=== PATIENT | female | born 1960 | race Caucasian/White ===

== ENCOUNTER → 2018-03-12 13:57 | Outpatient (CLI) | payer BC, SELFPAY ==
--- NOTE | 2018-03-12 14:16 | XR_ITS ---
XR foot LT min 3V Ordering Physician: Referral Provider, Patient Age: 58 years: Female HISTORY: ITS.REASON: LEFT FOOT PAIN TECHNIQUE: 3 views left foot. Left foot pain COMPARISON :None FINDINGS Left foot appears intact with no fracture nor lesion evident. Joint spaces are well-maintained with no erosions. Tarsals with satisfactory relationships. Generous plantar arch Moderately thick plantar calcaneal spur measuring just over 10 mm length. There is also thin spurring at the Achilles tendon measuring 7.5 mm length Suggesting perhaps scant soft tissue swelling at the forefoot particularly plantar aspect but correlation required IMPRESSION: Left foot appears intact. No fracture evident on plain film Calcaneal spurs.
== END ==
PROVIDERS: PCP Nurse Practitioner Family; Visit Provider Nurse Practitioner Family
DX: M79.672 Pain in left foot (principal)
CPT/HCPCS: 73630

== ENCOUNTER 2018-11-05 17:00 | Outpatient (RCR) | payer BC, SELFPAY | END 2018-11-05 17:30 | disposition home or self-care (01) | LOC: PT 17:00 | PROVIDERS: Visit Provider Podiatrist Foot & Ankle Surgery | DX: M76.72 Peroneal tendinitis, left leg (principal) | CPT/HCPCS: 97010; 97033; 97110; 97112; 97116; 97163 ==

== ENCOUNTER 2020-11-07 17:00 | Outpatient (RCR) | payer BC, SELFPAY | END 2020-11-24 14:27 | disposition home or self-care (01) | LOC: PT.CARL 17:00 | PROVIDERS: PCP Nurse Practitioner Family; Visit Provider Orthopaedic Surgery | DX: M76.02 Gluteal tendinitis, left hip; M25.552 Pain in left hip | CPT/HCPCS: 97010; 97014; 97033; 97035; 97110; 97140; 97163; G0283 ==

== ENCOUNTER → 2022-12-21 09:39 | Outpatient (CLI) | payer BC, SELFPAY ==
--- NOTE | 2022-12-21 09:44 | XR_ITS ---
FINAL REPORT CLINICAL HISTORY: PAIN IN LEFT ANKLE COMPARISON: Left foot radiograph 03/12/2018 FINDINGS: LEFT ANKLE Three views demonstrate no acute fracture or dislocation. The visualized joint spaces are normally aligned. Moderate plantar spur. The soft tissues are unremarkable. IMPRESSION: No acute bony abnormality. Reviewed, Interpreted and Dictated by Wilfrid Flores MD Transcribed by Ankita Deleon Authenticated and [facility]
== END ==
PROVIDERS: PCP Nurse Practitioner Family; Visit Provider Nurse Practitioner Family
DX: M25.572 Pain in left ankle and joints of left foot (principal)
CPT/HCPCS: 73610

== ENCOUNTER 2024-05-06 17:00 | Outpatient (RCR) | payer BC, SELFPAY | END 2024-06-09 16:34 | disposition home or self-care (01) | LOC: PT 17:00 | PROVIDERS: Visit Provider Nurse Practitioner Family | DX: M75.41 Impingement syndrome of right shoulder (principal); M54.2 Cervicalgia | CPT/HCPCS: 97110; 97140; 97163 ==